=== PATIENT | female | born 1965 | race Caucasian/White ===

== ENCOUNTER 2016-12-08 06:02 | Day surgery (SDC) | payer BC ==
[2016-12-01 17:35] LABS: BASOPHILS 0.2 %; BASOPHILS ABSOLUTE 0.01 10/3/uL (0.0-0.16); EOSINOPHILS 1.1 %; EOSINOPHILS ABSOLUTE 0.05 10/3/uL (0.0-0.53); IMMATURE GRANULOCYTES 0.2 %; IMMATURE GRANULOCYTES ABSOLUTE 0.01 10/3/uL (0.0-0.11); LYMPHOCYTES 29.5 %; LYMPHOCYTES ABSOLUTE 1.32 10/3/uL (0.67-4.30); MEAN CORPUS HGB CONC 33.3 g/dL (32.0-36.0); MEAN CORPUSCULAR HEMOGLOB 29.3 pg (26.0-34.0); MEAN PLATELET VOLUME 10.1 fL (9.2-13.0); MONOCYTES ABSOLUTE 0.18 10/3/uL (0.21-1.20); PLATELET COUNT 263 10/3/uL (150-400); RBC DISTRIBUTION WIDTH 12.9 % (12.0-16.0); RED CELL COUNT 3.75 10/6/uL (4.0-5.6); WHITE BLOOD CELLS 4.5 10/3/uL (4.5-10.5)
[2016-12-01 17:38] LABS: MANUAL DIFF NO %
[2016-12-01 17:58] LABS: BUN (BLOOD UREA NITROGEN) 12 MG/DL (6-23); CALCIUM, SERUM 9.2 MG/DL (8.5-10.4); CHLORIDE, SERUM 104 MMOL/L (96-112); CO2 (CARBON DIOXIDE) 30 MMOL/L (24-34); CREATININE 0.91 MG/DL (0.55-1.02); GFR AFRICAN AMERICAN 84 ML/MIN (>=60); GFR NON AFRICAN AMERICAN 73 ML/MIN (>=60); GLUCOSE, SERUM 154 MG/DL (60-99); POTASSIUM, SERUM 4.5 MMOL/L (3.5-5.3); SODIUM, SERUM 139 MMOL/L (135-148)
[~2016-12-08] VITALS: Ht 160 cm; Wt 115.2 kg
--- NOTE | ~2016-12-08 | OP ---
Record Of Operation [facility] [address] [place]. 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 PROCEDURES: 1. Robot-assisted laparoscopic hysterectomy with bilateral salpingo-oophorectomy for a uterus weighing greater than 250 g, it was 284 g weighed in the operating room, CPT code 39551. 2. [place] lymph node identification intraoperatively, CPT code 95111. 3. Bilateral pelvic lymph node dissection, CPT code 02176. ANESTHESIA: General. ESTIMATED BLOOD LOSS: Less than 25 mL. CRYSTALLOID: 1500 mL. DRAINS: Unger. FINDINGS: There was a left external iliac sentinel lymph node noted, a right external iliac sentinel lymph node noted, a left obturator lymph node noted, and a right obturator lymph node noted which were all removed and resulted in a complete pelvic lymph node dissection when completed. The uterus was grossly normal. There was minimal amount of tumor noted within the endometrium with no gross evidence of myometrial invasion. All peritoneal surfaces were without deformity. PATHOLOGY: Uterus, uterine cervix, bilateral fallopian tubes and ovaries, bilateral pelvic lymph nodes, and pelvic washings. COMPLICATIONS: None. POSTOPERATIVE PLAN: Extubated to PACU. PROCEDURE IN DETAIL: After informed consent was signed, the patient was taken to the operating room and placed in dorsal supine position where adequate general anesthesia was administered. She was then placed in dorsal lithotomy position in Niko stirrups and prepped and draped in the usual fashion and a Unger catheter was placed. A left upper quadrant incision was made with a scalpel and carried down to the fascia which was incised, muscle , posterior sheath entered sharply, trocar placed, and abdomen insufflated with CO2 gas. Additional robot trocars were placed in the supraumbilical region, bilateral upper quadrants, and right lateral flank, all under direct visualization. The uterus was sounded, cervix dilated, ICG injected into the cervix at 3 o'clock and 9 o'clock, and the NUBIA uterine manipulator was assembled and deployed. The patient was then placed in steep Record Of Operation [address] [address] NAME: DAVY LEI : 63 STATUS : [facility] PAT#: [id number] AGE: 51 ADM/REG DATE : 12/08/16 MR#: [id number] REPORT SERV DATE: 12/11/16 DICTATED BY: TYRONE MONTIEL DATE: 12/10/16 REPORT STATUS : Draft TRANSCRIBED BY: MODEna DATE: 12/10/16 Trendelenburg and the robot docked in the usual fashion. Bilateral round ligaments were taken with bipolar cautery, transected with monopolar scissors, and the pelvic peritoneum was taken down lateral and parallel to the infundibulopelvic ligaments. Pararectal and paravesical spaces were then developed, and using the firefly scope, sentinel lymph nodes were identified as mentioned above which resulted in essentially a complete pelvic lymph node dissection. All anatomic borders were then identified including the psoas muscles, obturator nerve, superior vesical artery, and deep circumflex iliac vein. No further pelvic lymph nodes were removed. With the ureters identified and reflected medially, clips were placed in the origins of the uterine arteries bilaterally. The infundibulopelvic ligaments were then isolated, taken with bipolar cautery, transected with monopolar scissors, and the broad ligament taken down to the level of the cervix where the posterior colpotomy was made. The vesicouterine peritoneum was then incised and the bladder taken down well beneath the level of the anterior ILEANA ring and the anterior colpotomy was made. Uterine vessels were then taken at the cervix with bipolar cautery, transected with monopolar scissors, and the parametria reflected off the cervical stroma. The anterior and posterior colpotomies were then connected using monopolar scissors, and the uterus, uterine cervix, and bilateral adnexa were then brought out through the vagina. The pelvis was irrigated, cleared of all clots and debris, and excellent hemostasis was noted. All instruments removed from the abdomen, robot undocked, and CO2 gas evacuated. The Unger catheter was removed, the cystoscope placed through the urethra, and the bladder distended with appropriate media. Bilateral brisk ureteral jets were noted suggesting bilateral ureteral patency. The cystoscope was removed and the bladder drained. CO2 gas was then reintroduced into the abdomen, and using the laparoscope, the pelvis was re-examined and found to be hemostatic. The laparoscope and all trocars were then removed from the abdomen. The fascia from the left upper quadrant incision was closed with 0 Vicryl suture and skin from all trocar sites was closed with 4-0 Monocryl and Dermabond. The patient tolerated the procedure well, was awakened, extubated, and sent to the PACU in stable condition. TB/MODL Tyrone Montiel MD / [id number] CC: Tyrone Montiel MD
[~2016-12-08 06:02] MED LIST: *DENIES
== END 2016-12-08 19:18 | disposition home or self-care (01) ==
LOC: SDC 06:02
PROVIDERS: Obstetrics & Gynecology Gynecology
PROC: 0UTC4ZZ Resection of Cervix, Percutaneous Endoscopic Approach (ICD-10-PCS; 2016-12-08)
PROC: 0UT24ZZ Resection of Bilateral Ovaries, Percutaneous Endoscopic Approach (ICD-10-PCS; 2016-12-08)
PROC: 0UT74ZZ Resection of Bilateral Fallopian Tubes, Percutaneous Endoscopic Approach (ICD-10-PCS; 2016-12-08)
PROC: 07TC4ZZ Resection of Pelvis Lymphatic, Percutaneous Endoscopic Approach (ICD-10-PCS; principal; 2016-12-08 07:00)
PROC: 0UT94ZZ Resection of Uterus, Percutaneous Endoscopic Approach (ICD-10-PCS; 2016-12-08 07:00)
DX: C54.1 Malignant neoplasm of endometrium (principal); D25.9 Leiomyoma of uterus, unspecified; N83.02 Follicular cyst of left ovary; N83.01 Follicular cyst of right ovary; D64.9 Anemia, unspecified; E66.9 Obesity, unspecified; Z68.42 Body mass index [BMI] 45.0-49.9, adult; Z91.09 Other allergy status, other than to drugs and biological substances; Z90.89 Acquired absence of other organs; Z98.890 Other specified postprocedural states
CPT/HCPCS: 36415; 71020-PO; 80048; 84703; 85025; 86850; 86900; 86901; 88112; 88307; 88309; 88341; 88342; 93005; A9270-GY; J0694; J2250; J2405; J2550; J2710; J2795; J3010